=== PATIENT | male | born 1950 | race Caucasian/White ===

== ENCOUNTER 2021-01-22 12:54 | Day surgery (SDC) | payer MEDICARE, OTHER, SELFPAY ==
[2021-01-15 12:51] VITALS: BMI 30.8
[2021-01-16 14:18] VITALS: BMI 29.7
--- NOTE | 2021-01-21 09:53 | P.CONAN_ITS ---
HPI - Anesthesia Eval Consult details Narrative: 71yo M for Colonoscopy ICD in situ (interr on chart) Per Dr Brewer (cardiol) office, no visit since 05/2019, next scheduled for 05/2021. No echo on record. Device checks have all been WNL. Call to PCP for recent OV notes (unavailable d/t computers down) [facility] Past Medical History Medical History CAD (coronary artery disease) Elevated cholesterol HTN (hypertension) Hx of myocardial infarction Peripheral neuropathy Personal history of COVID-19 Surgical History Surgical History AICD (automatic cardioverter/defibrillator) present History of cardiac catheterization Hx of colonoscopy Social History Social History (Updated 01/16/21 @ 14:16 by Mara Gauthier RN) Patient Tobacco Use Status: Never used Tobacco Use of substances other than those prescribed or required for medical reasons: No Are you DNR?: No Advance Directives: No Advance Directives Information Provided: Yes (mailed) Advance Directives on File: No Meds Allergies Allergy/AdvReac Type Severity Reaction Status Date / Time No Known Allergies Allergy Verified 01/22/21 13:13 Home Medications Medication Instructions Recorded Confirmed Last Taken Type aspirin 81 mg tablet,delayed 81 mg PO DAILY 01/15/21 01/15/21 01/17/21 07:30 History release atorvastatin 80 mg tablet 80 mg PO DAILY 01/15/21 01/16/21 Unknown History losartan 50 mg tablet 50 mg PO DAILY 01/15/21 01/15/21 Unknown History metoprolol tartrate 25 mg tablet 25 mg PO DAILY 01/15/21 01/15/21 Unknown History multivitamin 1 tab PO DAILY 01/15/21 01/15/21 Unknown History Exam Exam Date and Time: January 21, 2021 0953 Height,Weight and Vital Signs: Height 5 ft 7 in Weight 86.183 kg Narrative Narrative: ICD Interr 12/18/20 (Full report on chart) [employer] Normal lead and device function. No events
[2021-01-22 13:33] VITALS: BP 129/80; PULSE 82; RESP 16; TEMP 36.7; O2SAT 96
[2021-01-22] MEDS: Lactated Ringers 1,000 ML 20 ML IVCONT (13:42)
--- NOTE | 2021-01-22 14:30 | MHC.SHP ---
Pre-Procedural Eval Section A Date of Service: 01/22/21 The patient is an INPATIENT: No Changes since office visit: No Cold of Flu in the past 2 weeks, No New Medical Problems, No Changes in Medication and No Patient answered all questions The History & Physical has been completed within 30 days and I have reviewed it.: Yes Section B Chief Complaint: screening Allergies: Allergies Allergy/AdvReac Type Severity Reaction Status Date / Time No Known Allergies Allergy Verified 01/22/21 13:13 Plan I have reviewed the history and physical and performed a pertinent physical examination on my patient. No changes have occurred unless specified.
[2021-01-22 15:07] VITALS: BP 104/58; PULSE 71; RESP 12; TEMP 36.2; O2SAT 93
--- NOTE | 2021-01-22 15:09 | PM.OP ---
Brief Operative Note Date of Service: 01/22/21 Pre-op diagnosis: screening Post-op diagnosis: same (colon polyps) Surgeon: David Stewart Anesthesia: MAC Was an Special Programs Director used for this Procedure?: No Estimated blood loss (mL): 1 Pathology: other (polyps x2) Condition: stable Disposition: PACU
[2021-01-22 15:23] VITALS: BP 129/73; PULSE 65; RESP 16; TEMP 36.2; O2SAT 96
--- NOTE | 2021-01-22 22:19 | OP_ITS ---
SURGEON: David Stewart MD INDICATIONS: Colon cancer screening. PREOPERATIVE DIAGNOSIS: POSTOPERATIVE DIAGNOSIS: PROCEDURE PERFORMED: Colonoscopy to the terminal ileum with snare polypectomy and biopsy. ESTIMATED BLOOD LOSS: COMPLICATIONS: ANESTHESIA: ASSISTANTS: SPECIMENS: MEDICATIONS: Monitored anesthesia care. DESCRIPTION OF PROCEDURE: History and physical performed. The risks and benefits of the procedure were explained to the patient. Informed consent was obtained. The patient was placed in the left lateral decubitus position. A digital rectal exam was performed and was found to be normal. The Olympus pediatric video colonoscope was introduced into the rectum and advanced to the cecum without difficulty. The cecum was identified by transillumination, palpation, and identification of ileocecal valve. Examination was performed and the scope was removed. He tolerated the procedure well and was taken to recovery area in stable condition. FINDINGS: The terminal ileum was normal. The visualized colonic mucosa was normal. In the cecum, was a 7 mm polyp that was removed with a cold snare and recovered via suction. A second polyp at 70 cm measuring less than 5 mm was removed with biopsy forceps. There was moderate sigmoid diverticulosis. The quality of the prep was good. Retroflexed examination showed moderate-sized internal hemorrhoids. IMPRESSION: Colon polyps. RECOMMENDATION: Follow up the biopsy results. MD ALYCIA Serrano/RENOL / [id number]
== END 2021-01-22 16:25 | disposition home or self-care (01) ==
PROVIDERS: PCP Internal Medicine; Visit Provider Internal Medicine Gastroenterology
PROC: 0DJD8ZZ Inspection of Lower Intestinal Tract, Via Natural or Artificial Opening Endoscopic (ICD-10-PCS; CPT 45378; principal; 2021-01-22 14:20)
DX: Z12.11 Encounter for screening for malignant neoplasm of colon (principal); D12.0 Benign neoplasm of cecum; D12.6 Benign neoplasm of colon, unspecified; Z86.010 Personal history of colon polyps; I10 Essential (primary) hypertension; Z79.82 Long term (current) use of aspirin; Z79.899 Other long term (current) drug therapy
CPT/HCPCS: 45385; 45380; 88305

== ENCOUNTER 2022-05-15 10:41 | Outpatient (REF) | payer MEDICARE, OTHER, SELFPAY ==
[2022-05-15 10:45] LABS: MANUAL DIFF FLAG NO
[2022-05-15 11:12] LABS: Basophils Percent Auto 0.6 % (0-2); Eosinophils Absolute Auto 0.5 X10*3/uL (0.0-0.4); Eosinophils Percent Auto 8.1 % (0-4); Hemoglobin 15.2 g/dl (14.0-18.0); Imm Gran Abs Auto 0.01 X10*3/uL (0.00-0.03); Imm Gran Pct Auto 0.2 % (0.0-0.4); Lymphocytes Absolute Auto 2.1 X10*3/uL (1.2-4.9); Lymphocytes Percent Auto 32.4 % (20-40); Mean Corpuscular Hemoglobin 30.4 pg (27.0-33.0); Mean Platelet Volume 11.4 fL (9.4-12.4); Monocytes Absolute Auto 0.5 X10*3/uL (0.1-1.2); Monocytes Percent Auto 8.1 % (2-11); Neutrophils Absolute Auto 3.3 x10*3/uL (2.0-8.3); Neutrophils Percent Auto 50.6 % (45-73); Platelet Count 253 X10*3/uL (160-400); Red Cell Distribution Width 13.2 % (11.0-16.0); White Blood Count 6.6 X10*3/uL (4.8-10.8)
[2022-05-15 11:14] LABS: Appearance Urine Clear; Color Urine Yellow; Glucose Urine UA Negative (Negative); Leukocyte Esterase Urine Negative (Negative); Nitrite Urine Negative (Negative); PH 5.5 (5.0-9.0); UMIC TRIGGER UACC YES; Urine Blood Trace (Negative); Urine Ketones Trace mg/dL (Negative); Urine Protein Negative (Neg-Trace)
[2022-05-15 11:17] LABS: Bacteria Urine None Seen (None Seen); Hyaline Casts Urine 0-2 /LPF (0-2); RBC Urine 0-2 /HPF (0-2); Squamous Epithelial Cell Urine 0-2 /HPF (0-2); WBC Urine 0-5 /HPF (0-5)
[2022-05-15 11:32] LABS: Estimated Average Glucose 134 mg/dL; Hemoglobin A1c % 6.3 %
[2022-05-15 11:53] LABS: Creatinine Urine 204.52 mg/dL; Microalbum/Creatinine Ratio Ur 5.3 ug/mg cr
[2022-05-15 12:04] LABS: Alanine Aminotransferase 32 U/L (0-40); Albumin Level 4.5 g/dL (3.5-5.0); Alkaline Phosphatase 50 U/L (39-117); Anion Gap 19 (12-20); Aspartate Amino Transferase 30 U/L (5-37); Bilirubin Total 0.8 mg/dL (0.0-1.0); Blood Urea Nitrogen 19 mg/dL (9-16); Calcium 9.6 mg/dL (8.4-10.2); Carbon Dioxide 22 mmol/L (22-29); Chloride 104 mmol/L (96-108); Cholesterol 133 mg/dL; Estimated Glomerular Filt Rate > 60; Glucose Fasting 93 mg/dL (60-99); HDL Cholesterol 47 mg/dL; LDL Cholesterol Calculated 70 mg/dl; Potassium 4.6 mmol/L (3.3-5.1); Sodium 140 mmol/L (135-145); Triglycerides 84 mg/dL
[2022-05-15 12:13] LABS: PSA,Total (Free>4and<10) 1.55 ng/mL (0.00-4.00)
== END 2022-05-15 10:42 | disposition home or self-care (01) ==
LOC: HO.LNP 10:41
PROVIDERS: Visit Provider Internal Medicine
DX: Z12.5 Encounter for screening for malignant neoplasm of prostate (principal); E78.00 Pure hypercholesterolemia, unspecified; R73.03 Prediabetes; Z87.448 Personal history of other diseases of urinary system
CPT/HCPCS: 80053; 80061; 81001; 82043; 83036; 84153; 85025

== ENCOUNTER 2022-11-24 07:46 | Outpatient (REF) | payer MEDICARE, OTHER, SELFPAY ==
[2022-11-24 13:00] LABS: Adenovirus PCR Not Detected (Not Detect.); Bordetella parapertussis PCR Not Detected (Not Detect.); Bordetella pertussis PCR Not Detected (Not Detect.); Chlamydia pneumoniae PCR Not Detected (Not Detect.); Coronavirus 229E PCR Not Detected (Not Detect.); Coronavirus HKU1 PCR Not Detected (Not Detect.); Coronavirus NL63 PCR Not Detected (Not Detect.); Coronavirus OC43 PCR Not Detected (Not Detect.); Human metapneumovirus PCR Not Detected (Not Detect.); Influenza A PCR Not Detected (Not Detect.); Influenza B PCR Not Detected (Not Detect.); Mycoplasma pneumoniae PCR Not Detected (Not Detect.); Parainfluenza 1 PCR Not Detected (Not Detect.); Parainfluenza 2 PCR Not Detected (Not Detect.); Parainfluenza 3 PCR Detected (Not Detect.); Parainfluenza 4 PCR Not Detected (Not Detect.); RSV PCR Not Detected (Not Detect.); Rhino/Enterovirus PCR Not Detected (Not Detect.); SARS-CoV-2 PCR Not Detected (Not Detect.)
== END 2022-11-24 07:47 | disposition home or self-care (01) ==
LOC: HO.LAB 07:46
PROVIDERS: PCP Internal Medicine; Visit Provider Internal Medicine
DX: J01.00 Acute maxillary sinusitis, unspecified (principal); B34.8 Other viral infections of unspecified site
CPT/HCPCS: 87633

== ENCOUNTER 2023-05-17 11:31 | Outpatient (REF) | payer MEDICARE, OTHER, SELFPAY ==
[2023-05-17 11:35] LABS: MANUAL DIFF FLAG NO
[2023-05-17 11:52] LABS: Basophils Percent Auto 0.5 % (0-2); Eosinophils Absolute Auto 0.6 X10*3/uL (0.0-0.4); Eosinophils Percent Auto 8.1 % (0-4); Hematocrit 46.7 % (42.0-52.0); Hemoglobin 15.6 g/dl (14.0-18.0); Imm Gran Abs Auto 0.02 X10*3/uL (0.00-0.03); Imm Gran Pct Auto 0.3 % (0.0-0.4); Lymphocytes Absolute Auto 1.7 X10*3/uL (1.2-4.9); Mean Corpuscular HGB Conc 33.4 g/dl (31.0-36.0); Mean Corpuscular Hemoglobin 30.2 pg (27.0-33.0); Mean Corpuscular Volume 90.5 fL (80.0-98.0); Mean Platelet Volume 12.1 fL (9.4-12.4); Monocytes Absolute Auto 0.6 X10*3/uL (0.1-1.2); Monocytes Percent Auto 7.3 % (2-11); Neutrophils Absolute Auto 4.9 x10*3/uL (2.0-8.3); Neutrophils Percent Auto 62.8 % (45-73); Platelet Count 256 X10*3/uL (160-400); Red Blood Count 5.16 X10*6/uL (4.60-5.80); Red Cell Distribution Width 13.2 % (11.0-16.0); White Blood Count 7.9 X10*3/uL (4.8-10.8)
[2023-05-17 11:54] LABS: Appearance Urine Clear; Color Urine Yellow; Glucose Urine UA Negative (Negative); Leukocyte Esterase Urine Negative (Negative); Nitrite Urine Negative (Negative); PH 5.5 (5.0-9.0); Specific Gravity - Urine 1.015 (1.005-1.025); Urine Blood Negative (Negative); Urine Ketones Trace mg/dL (Negative); Urine Protein Negative (Neg-Trace)
[2023-05-17 12:01] LABS: Estimated Average Glucose 134 mg/dL; Hemoglobin A1c % 6.3 % (<6.0)
[2023-05-17 12:09] LABS: Bacteria Urine None Seen (None Seen); Hyaline Casts Urine 0-2 /LPF (0-2); RBC Urine 0-2 /HPF (0-2); Squamous Epithelial Cell Urine 0-2 /HPF (0-2); WBC Urine 0-5 /HPF (0-5)
[2023-05-17 12:13] LABS: Alanine Aminotransferase 29 U/L (0-40); Albumin Level 4.4 g/dL (3.5-5.0); Alkaline Phosphatase 51 U/L (39-117); Anion Gap 14 (12-20); Aspartate Amino Transferase 29 U/L (5-37); Bilirubin Total 0.6 mg/dL (0.0-1.0); Blood Urea Nitrogen 15 mg/dL (9-16); Calcium 9.9 mg/dL (8.4-10.2); Carbon Dioxide 25 mmol/L (22-29); Chloride 104 mmol/L (96-108); Cholesterol 152 mg/dL (<200); Estimated Glomerular Filt Rate > 60; Glucose Fasting 120 mg/dL (60-99); HDL Cholesterol 49 mg/dL (>40); LDL Cholesterol Calculated 82 mg/dL (<100); Potassium 4.9 mmol/L (3.3-5.1); Sodium 138 mmol/L (135-145); Total Protein 7.6 g/dL (6.5-8.0); Triglycerides 108 mg/dL (<150)
[2023-05-17 12:23] LABS: PSA,Total (Free>4and<10) 1.87 ng/mL (0.00-4.00)
[2023-05-17 12:40] LABS: Creatinine Urine 158.51 mg/dL; Microalbum/Creatinine Ratio Ur 11.3 ug/mg cr (<30)
== END 2023-05-17 11:32 | disposition home or self-care (01) ==
LOC: HO.LNP 11:31
PROVIDERS: Visit Provider Internal Medicine
DX: R73.09 Other abnormal glucose (principal); E78.00 Pure hypercholesterolemia, unspecified; Z12.5 Encounter for screening for malignant neoplasm of prostate
CPT/HCPCS: 80053; 80061; 81001; 82043; 82570; 83036; 84153; 85025

== ENCOUNTER 2023-11-12 11:06 | Outpatient (REF) | payer MEDICARE, OTHER, SELFPAY ==
[2023-11-12 12:08] LABS: Alanine Aminotransferase 33 U/L (0-40); Albumin Level 4.4 g/dL (3.5-5.0); Alkaline Phosphatase 59 U/L (39-117); Aspartate Amino Transferase 32 U/L (5-37); Bilirubin Direct 0.1 mg/dL (0.0-0.5); Bilirubin Total 0.4 mg/dL (0.0-1.0); Cholesterol 140 mg/dL (<200); Glucose Fasting 140 mg/dL (60-99); HDL Cholesterol 48 mg/dL (>40); LDL Cholesterol Calculated 70 mg/dL (<100); Triglycerides 112 mg/dL (<150)
[2023-11-12 12:44] LABS: Estimated Average Glucose 146 mg/dL; Hemoglobin A1c % 6.7 % (<6.0)
[2023-11-12 13:17] LABS: Reflex LDLD? No
== END 2023-11-12 11:07 | disposition home or self-care (01) ==
LOC: HO.LNP 11:06
PROVIDERS: Visit Provider Internal Medicine
DX: E78.00 Pure hypercholesterolemia, unspecified (principal); R73.09 Other abnormal glucose
CPT/HCPCS: 80061; 80076; 82947; 83036

== ENCOUNTER 2024-03-03 08:26 | Outpatient (REF) | payer MEDICARE, OTHER, SELFPAY ==
[2024-03-03 09:06] LABS: Estimated Average Glucose 111 mg/dL; Hemoglobin A1C 127.0582 umol/L; Hemoglobin A1c % 5.5 % (<6.0); Total Hemoglobin (HGBA1C) 3520.6751 umol/L
[2024-03-03 09:10] LABS: Glucose Fasting 108 mg/dL (60-99)
== END 2024-03-03 08:27 | disposition home or self-care (01) ==
LOC: HO.LAB 08:26
PROVIDERS: PCP Internal Medicine; Visit Provider Internal Medicine
DX: R73.09 Other abnormal glucose (principal)
CPT/HCPCS: 36415; 82947; 83036

== ENCOUNTER 2024-06-09 11:34 | Outpatient (REF) | payer MEDICARE, OTHER, SELFPAY ==
[2024-06-09 11:38] LABS: MANUAL DIFF FLAG NO
[2024-06-09 11:48] LABS: Basophils Percent Auto 0.7 % (0-2); Eosinophils Absolute Auto 0.5 X10*3/uL (0.0-0.4); Eosinophils Percent Auto 8.7 % (0-4); Hematocrit 43.8 % (42.0-52.0); Hemoglobin 14.6 g/dl (14.0-18.0); Imm Gran Abs Auto 0.01 X10*3/uL (0.00-0.03); Imm Gran Pct Auto 0.2 % (0.0-0.4); Lymphocytes Absolute Auto 1.6 X10*3/uL (1.2-4.9); Lymphocytes Percent Auto 30.4 % (20-40); Mean Corpuscular HGB Conc 33.3 g/dl (31.0-36.0); Mean Corpuscular Hemoglobin 31.6 pg (27.0-33.0); Mean Corpuscular Volume 94.8 fL (80.0-98.0); Mean Platelet Volume 11.2 fL (9.4-12.4); Monocytes Absolute Auto 0.5 X10*3/uL (0.1-1.2); Monocytes Percent Auto 8.3 % (2-11); Neutrophils Absolute Auto 2.8 x10*3/uL (2.0-8.3); Neutrophils Percent Auto 51.7 % (45-73); Platelet Count 249 X10*3/uL (160-400); Red Blood Count 4.62 X10*6/uL (4.60-5.80); Red Cell Distribution Width 13.2 % (11.0-16.0); White Blood Count 5.4 X10*3/uL (4.8-10.8)
[2024-06-09 11:56] LABS: Estimated Average Glucose 108 mg/dL; Hemoglobin A1C 137.7843 umol/L; Hemoglobin A1c % 5.4 % (<6.0); Total Hemoglobin (HGBA1C) 3836.1935 umol/L
[2024-06-09 12:01] LABS: Alanine Aminotransferase 30 U/L (0-40); Albumin Level 4.5 g/dL (3.5-5.0); Alkaline Phosphatase 40 U/L (39-117); Anion Gap 11 (12-20); Aspartate Amino Transferase 29 U/L (5-37); Bilirubin Total 0.5 mg/dL (0.0-1.0); Blood Urea Nitrogen 21 mg/dL (9-16); Calcium 9.7 mg/dL (8.4-10.2); Carbon Dioxide 26 mmol/L (22-29); Chloride 107 mmol/L (96-108); Cholesterol 153 mg/dL (<200); Estimated Glomerular Filt Rate > 60; Glucose Fasting 94 mg/dL (60-99); HDL Cholesterol 63 mg/dL (>40); LDL Cholesterol Calculated 79 mg/dL (<100); Potassium 4.5 mmol/L (3.3-5.1); Sodium 139 mmol/L (135-145); Total Protein 7.6 g/dL (6.5-8.0); Triglycerides 59 mg/dL (<150)
[2024-06-09 12:19] LABS: PSA,Total (Free>4and<10) 1.76 ng/mL (0.00-4.00)
[2024-06-09 12:25] LABS: Appearance Urine Clear; Color Urine Yellow; Glucose Urine UA Negative (Negative); Leukocyte Esterase Urine Negative (Negative); Nitrite Urine Negative (Negative); PH 5.5 (5.0-9.0); Urine Blood Negative (Negative); Urine Ketones Negative (Negative); Urine Protein Negative (Neg-Trace)
[2024-06-09 12:26] LABS: Bacteria Urine None Seen (None Seen); Hyaline Casts Urine 0-2 /LPF (0-2); RBC Urine 0-2 /HPF (0-2); Squamous Epithelial Cell Urine 0-2 /HPF (0-2); WBC Urine 0-5 /HPF (0-5)
[2024-06-09 12:34] LABS: Creatinine Urine 106.21 mg/dL; Microalbum/Creatinine Ratio Ur 7.5 ug/mg cr (<30)
--- OUTSIDE RECORDS SUMMARY | 2024-06-09 13:54 | XMS_ITS ---
Author Organization Yuriy Bueno MD Address [address] [place] [phone] Care Team Providers Care Routing Equipment Tender Name Role Phone Yuriy Bueno Primary Care Provider Medications Medication SIG (Take, Route, Frequency, Duration) Notes Start Date End Date Status Hydrocod Raman-Chlorphe Raman ER 10-8 MG/5ML 5 ml as needed Orally every 12 hrs for 10 days 01/04/2024 Active Encounters Encounter Location Date Provider Diagnosis Yuriy Bueno MD [address] [place] [phone] 01/04/2024 Yuriy Bueno COVID-19 U07.1 Assessments Encounter Date Diagnosis (ICD Code) Assessment Notes Treatment Notes Treatment Clinical Notes Section Notes 01/04/2024 COVID-19 (ICD-10 - U07.1) Plan Of Treatment Medication Medication Name Sig Start Date Stop Date Notes Hydrocod Raman-Chlorphe Raman ER 10-8 MG/5ML 5 ml as needed Orally every 12 hrs for 10 days 01/04/2024 Next Appt Details Provider Name:Yuriy brush, 06/23/2024 08:00:00 AM, [address], [address], [place], [place], [phone], Progress Notes * Iglesia HAIR JDOB:[birth year] (73 yo M)Acc No.[id number]:01/04/2024 Patient:?Iglesia Hair :1950???Age:73 Y???Sex:Male Address:[facility] [address], [address] [place] [address] , [place] [address] * Refills? Continue Hydrocod Raman-Chlorphe Raman ER Suspension Extended Release, 10-8 MG/5ML, Orally, 100 ml, 5 ml as needed, every 12 hrs, 10 days, Refills=0 * true * Date:? Generated for Pepe hernandez/Eve/Madiitting on:?06/09/2024 01:54 PM EST
--- OUTSIDE RECORDS SUMMARY | 2024-06-09 13:54 | XMS_ITS | Clinical Summary ---
Author Organization [facility] Address [address] [place] [address] Care Team Providers Care Golf Cart Maker Name Role Phone Pcp, No Primary Care Provider Unavailabl e Allergies No known active allergies Medications Medication Sig Dispensed Refills Start Date End Date Status atorvastatin (LIPITOR) 80 MG tablet Take 80 mg by mouth daily. 09/30/2022 Active losartan (COZAAR) 50 MG tablet Take 50 mg by mouth daily. 11/05/2022 Active propranolol (INDERAL LA) 80 MG 24 hr capsule Take by mouth daily. 10/22/2022 Active aspirin 81 MG chewable tablet Chew 81 mg daily. Active Social History Tobacco Use Types Packs/Day Years Used Date Smoking Tobacco: Never Assessed Sex and Gender Information Value Date Recorded Sex Assigned at Not on file Gender Identity Not on file Sexual Orientation Not on file Last Filed Vital Signs Vital Sign Reading Time Taken Comments Blood Pressure 128/79 11/18/2022 10:46 AM EDT Pulse 51 11/18/2022 10:46 AM EDT Temperature 36.8 ??C (98.3 ??F) 11/18/2022 10:46 AM E DT Respiratory Rate - - Oxygen Saturation 96% 11/18/2022 10:46 AM EDT Inhaled Oxygen Concentration - - Weight - - Height - - Body Mass Index - - Plan of Treatment Health Maintenance Due Date Last Done Comments Hepatitis C Virus Screening 1950 DTaP/Tdap/Td Vaccines (1 - Tdap) 1970 Mammogram 1991 Colonoscopy 01/15/1996 Pneumococcal Vaccines 50+ (1 of 1 - PCV) 2001 Zoster (Shingles) Vaccine (1 of 2) 2001 DXA Bone Density (Females,Ag es 65 and older) 01/15/2016 Influenza Vaccine 11/11/2023 COVID-19 Vaccine ( - 2023-2 5 season) 2023 RSV Vaccine 60 years and old er and Patients (1 - 1-dose 75+ series) 2026 Hepatitis B Vaccines Aged Out No long er eligible based on patient's age to complete this topic Care Teams Golf Cart Maker Relationship Specialty Start Date End Date Pcp, No [address] [place] [address] PCP - General 11/18/22
--- OUTSIDE RECORDS SUMMARY | 2024-06-09 13:54 | XMS_ITS ---
Author Organization Yuriy Bueno MD Address [address] [place] [phone] Care Team Providers Care Assembly Riveter Name Role Phone Yuriy Bueno Primary Care Provider Results Component Value Reference Range Notes Comprehensive [facility]. Panel Fa st (Not yet reviewed by provider) Interpretation: Performing Lab:[facility], [address] [place] [phone] Notes/Report: Sodium 139 135-145 mmol/L Potassium 4.5 3.3-5.1 mmol/L Chloride 107 96-108 mmol/L Carbon Dioxide 26 22-29 mmol/L Anion Gap 11 12-20 Blood Urea Nitrogen 21 9-16 mg/dL Creatinine 0.93 0.5-1.4 mg/dL Estimated Glomerular Filt Rate > 60 Chronic Kidney Disease: Estimated GFR < 60 mL/min/1.73m2 Severe Kidney Disease: Estimated GFR < 15 mL/min/1.73m2 Glucose Fasting 94 60-99 mg/dL Calcium 9.7 8.4-10.2 mg/dL Bilirubin Total 0.5 0.0-1.0 mg/dL Aspartate Amino Transferase 29 5-37 U/L Alanine Aminotransferase 30 0-40 U/L Total Protein 7.6 6.5-8.0 g/dL Albumin Level 4.5 3.5-5.0 g/dL Alkaline Phosphatase 40 39-117 U/L Complete Blood Count Auto Di ff Reviewed date:06/09/2024 12:41:07 PM Interpretation: Performing Lab:[facility], [address] [place] [phone] Notes/Report: White Blood Count 5.4 4.8-10.8 X10*3/uL Red Blood Count 4.62 4.60-5.80 X10*6/uL Hemoglobin 14.6 14.0-18.0 g/dl Hematocrit 43.8 42.0-52.0 % Mean Corpuscular Volume 94.8 80.0-98.0 fL Mean Corpuscular Hemoglobin 31.6 27.0-33.0 pg Mean Corpuscular HGB Conc 33.3 31.0-36.0 g/dl Red Cell Distribution Width 13.2 11.0-16.0 % Platelet Count 249 160-400 X10*3/uL Mean Platelet Volume 11.2 9.4-12.4 fL Neutrophils Percent Auto 51.7 45-73 % Imm Gran Pct Auto 0.2 0.0-0.4 % Lymphocytes Percent Auto 30.4 20-40 % Monocytes Percent Auto 8.3 2-11 % Eosinophils Percent Auto 8.7 0-4 % Basophils Percent Auto 0.7 0-2 % NRBC Pct Auto 0.0 0.0-0.2 /100WBC Neutrophils Absolute Auto 2.8 2.0-8.3 x10*3/u L Imm Gran Abs Auto 0.01 0.00-0.03 X10*3/uL Lymphocytes Absolute Auto 1.6 1.2-4.9 X10*3/u L Monocytes Absolute Auto 0.5 0.1-1.2 X10*3/uL Eosinophils Absolute Auto 0.5 0.0-0.4 X10*3/u L Basophils Absolute Auto 0.0 0.0-0.2 X10*3/uL NRBC Abs Auto 0.000 0.0-0.012 X10*3/uL Lipid Panel Reviewed date:06/09/2024 12:40:42 PM Interpretation: Performing Lab:[facility], [address] [place] [phone] Notes/Report: Triglycerides 59 <150 mg/dL Desirable Triglyceride: less than 150 mg/dL Borderline High Triglyceride 150-199 mg/dL High Triglyceride: 200-499 mg/dL Very High Triglyceride: greater than or equal to 5OO mg/dL Cholesterol 153 <200 mg/dL Desirable Cholesterol: less than 200 mg/dL Borderline High Cholesterol: 200-239 mg/dL High Cholesterol: greater than 239 mg/dL LDL Cholesterol Calculated 79 <100 mg/dL Desirable LDL: less than 100 mg/dL Near Optimal/Above Optimal LDL: 110-129 mg/dL Borderline High LDL: 130-159 mg/dL High LDL: 160-189 mg/dL Very High LDL: greater than or equal to 190 mg/dL HDL Cholesterol 63 >40 mg/dL Desirable HDL: greater than 40 mg/dL Note: This HDL assay may give artificially low results in patients with liver disease. PSA,Total (Free>4and<10) Reviewed date:06/09/2024 12:40:18 PM Interpretation: Performing Lab:[address] [phone] Notes/Report: PSA,Total (Free>4and<10) 1.76 0.00-4.00 ng/mL A Free PSA was not performed: The percentage of Free PSA can be used to enhance the differentiation of prostate cancer from benign prostatic disease in subjects whose PSA levels are between 4.0 and 10.0 ng/mL. For subjects whose PSA levels are below 4.0 or above 10.0 ng/mL, the risk of prostate cancer is determined on the basis of the PSA alone. Therefore the % Free PSA is recommended only for those subjects whose PSA levels are between 4.0 and 10.0 ng/mL. PSA methodology: Handy Alinity i Chemiluminescent Microparticle Immunoassay (CMIA) Microalbumin, Random Reviewed date:06/09/2024 12:40:29 PM Interpretation: Performing Lab:[facility], [address] [place] [phone] Notes/Report: Creatinine Urine 106.21 Microalbumin Urine 8.0 Microalbum/Creatinine Ratio Ur 7.5 <30 ug/mg cr Albumin/Creatinine Ratio Reference Ranges: Normal: < 30 ug/mg creatinine Microalbuminuria: 30 - 300 ug/mg creatinine Clinical Albuminuria: > 300 ug/mg creatinine Hemoglobin A1c Reviewed date:06/09/2024 12:40:36 PM Interpretation: Performing Lab:[facility], [address] [place] [phone] Notes/Report: Hemoglobin A1c % 5.4 <6.0 % Hemoglobin A1C Reference Range Adults: 4.8 - 6.0 % Non diabetic: < 6.0 % Goal: < 7.0 % Additional Action Suggested: > 8.0 % Note: Hemoglobin A1c results are invalid for patients with abnormal amounts of HbF. Blood transfusions may impact the HbA1c concentration in the patient sample. Estimated Average Glucose 108 eAG = Estimated average glucose which is %A1C expressed as average glucose, using the formula of the G6D-Jewkhjz Average Glucose study (ADAG), Diabetes Care, Vol.31,#8, Nov. 2007 UA ClnCatch+Micro w/rflx Cul t Reviewed date:06/09/2024 12:41:26 PM Interpretation: Performing Lab:[facility], [address] [place] [phone] Notes/Report: Urine, Clean Catch Color Urine Yellow Appearance Urine Clear PH 5.5 5.0-9.0 Glucose Urine UA Negative Negative mg/dL Urine Blood Negative Negative Specific [place] - Urine 1.020 1.005-1.025 Urine Protein Negative Neg-Trace mg/dL Urine Ketones Negative Negative mg/dL Nitrite Urine Negative Negative Leukocyte Esterase Urine Negative Negative RBC Urine 0-2 0-2 /HPF WBC Urine 0-5 0-5 /HPF Squamous Epithelial Cell Urine 0-2 0-2 /HPF Bacteria Urine None Seen None Seen Hyaline Casts Urine 0-2 0-2 /LPF REASON FOR VISIT FASTING LABS Encounters Encounter Location Date Provider Diagnosis Yuriy Bueno MD [address] [place] [address] Drive [address] [place], [place] [phone] 06/09/2024 Yuriy Bueno Type 2 diabetes pranav itus treated without insulin E11.9 and Pure hypercholesterolemia E78.00 Assessments Encounter Date Diagnosis (ICD Code) Assessment Notes Treatment Notes Treatment Clinical Notes Section Notes 06/09/2024 Type 2 diabetes pranav itus treated without insulin (ICD-10 - E11.9) 06/09/2024 Pure hypercholesterolemia (ICD-10 - E78.00) Plan Of Treatment Pending Test Test Name Order Date Comprehensive [facility]. Panel Fast Next Appt Details Provider Name:Yuriy Kaity Adame ier, 06/23/2024 08:00:00 AM, [address], [address], [place], [phone], Progress Notes * Iglesia HAIR JDOB:[birth year] (74 yo M)Acc No.[id number]:06/09/2024 Progress Note Patient:?Iglesia HAIR Provider:?Yuriy Bueno MD :1950???Age:74 Y???Sex:Male Rob e:06/09/2024 Address:[facility] [address], [address] [facility] , [place], [place] Subjective: * Chief Complaints: * ???1. FASTING LABS. * Medical History:? Objective: * Vitals:? Assessment: * Assessment: 1.?Type 2 diabetes mellitus treated without insulin - E11.9???2.?Pure hypercholesterolemia - E78.00??? Plan: * Treatment: 2.?Pure hypercholesterolemia ?LAB: Comprehensive [facility]. Panel Fast (Collection Date & Time - 06/09/2024 07:45 AM) ?LAB: Complete Blood Count Auto Diff (Collection Date & Time - 06/09/2024 07:45 AM) ?LAB: Lipid Panel (Collection Date & Time - 06/09/2024 07:45 AM) ?LAB: PSA,Total (Free>4and<10) (Collection Date & Time - 06/09/2024 07:45 AM) ?LAB: Microalbumin, Random (Collection Date & Time - 06/09/2024 07:45 AM) ?LAB: Hemoglobin A1c (Collection Date & Time - 06/09/2024 07:45 AM) ?LAB: UA ClnCatch+Micro w/rflx Cult (Collection Date & Time - 06/09/2024 07:45 AM) * Procedure Codes:?30190 VENIP UNCT, ROUTINE* * * The named appointment provid er may or may not be the originator of this progress note, and it is not deemed complete until electronically signed by the appointment provider. Sign off status: Pending * Provider:?Yuriy Bueno MD Date:?0 06/09/2024 Generated for Pepe hernandez/Eve/Davy on:?06/09/2024 01:54 PM EST
--- OUTSIDE RECORDS SUMMARY | 2024-06-09 13:54 | XMS_ITS | Clinical Summary ---
[facility] Organization [facility] Address [address] [place] [address] Care Team Providers Care Care Transition Mgr Name Role Phone Unavailable Primary Care Provider Unavailabl e Medications Medication Sig Dispensed Refills Start Date End Date Status atorvastatin (LIPITOR) tablet 80 mg Take 80 mg by mouth daily. 0 10/24/2019 Active losartan (COZAAR) tablet 50 mg TAKE 1 TABLET BY MOUTH EVERY DAY TO REPLACE IRBESARTAN WHILE IT IS NOT AVAILABLE 0 12/03/2019 Active metoprolol succinate (TOPROL-XL) 24 hr tablet 25 mg 0 12/19/2019 Active Social History Tobacco Use Types Packs/Day Years Used Date Smoking Tobacco: Never Assessed Sex and Gender Information Value Date Recorded Sex Assigned at Not on file Gender Identity Not on file Sexual Orientation Not on file Last Filed Vital Signs Vital Sign Reading Time Taken Comments Blood Pressure - - Pulse - - Temperature - - Respiratory Rate - - Oxygen Saturation - - Inhaled Oxygen Concentration - - Weight 86.2 kg (190 lb) 12/29/2019 11:00 AM EDT Height 170.2 cm (5' 7 ) 12/29/2019 11:00 AM EDT Body Mass Index 29.76 12/29/2019 11:00 AM EDT Plan of Treatment Health Maintenance Due Date Last Done Comments Hepatitis C Screening 1950 COVID-19 Vaccine (#1) 1950 Depression Screening 1963 Preventative Health Evaluation 1969 DTap / Tdap / Td (1 - Tdap) 1970 Colon Cancer Screening (Colonoscopy) 01/15/1996 Shingrix-Zoster Vaccine (1 of 2) 2001 Fall Risk Assessment 01/15/2016 Pneumococcal Vaccine (1 of 1 - PCV) 01/15/2016 Influenza Vaccine (#1) 2023 RSV Adult > 60+ Yrs or Pregn ant (1 - 1-dose 75+ series) 2026 Hepatitis B Vaccines Aged Out No long er eligible based on patient's age to complete this topic RSV Ped < 20 months Aged Out No longe r eligible based on patient's age to complete this topic
--- OUTSIDE RECORDS SUMMARY | 2024-06-09 13:54 | XMS_ITS ---
Author Name [facility] Organization Unknown History of Medication Use Medication Directions Dispensed Refills Start Date End Date Stat us aspirin 81 MG chewable tablet Chew 81 mg daily. ac tive losartan (COZAAR) 50 MG tablet Take 50 mg by mouth daily. 11/05/2022 active Problems Problem Status Onset Date Problem Type Date of Resoluti on Source Viral URI with cough [facility] Encounter for screening laboratory testing for COVID-19 virus active [facility]
--- OUTSIDE RECORDS SUMMARY | 2024-06-09 13:55 | XMS_ITS | Patient Health Record ---
Author Organization [facility] Address [address] [place] [address] Care Team Providers Care After School Tutor Name Role Phone Yuriy Bueno MD Primary Care Provider David Lujan Jr Unavailable [phone] REASON FOR REFERRAL No Information MEDICATIONS Medication SIG (Take, Route, Frequency, Duration) Notes Start Date End Date Status Multivitamin - 1 tablet Orally Once a day for 30 day(s) Active MiraLax (colon prep) 17 GM/SCOOP mixed with Gatorade or Crystal Light Orally begin at 5:00 p.m. the day before the procedure for 1 day 01/09/2021 Active Losartan Potassium 50 MG Oral for 90 Active Aspir-81 81 MG 1 tablet Orally Once a day Active Metoprolol Tartrate 25 MG 1 tablet Orall y once a day Active Atorvastatin Calcium 80 MG 1 tablet Oral ly Once a day Active IMMUNIZATIONS Vaccine Route Administration Date Status Comme nts Influenza Unknown 12/12/2019 Administered SOCIAL HISTORY Sex Assigned At : Social History Observation Description Sex Assigned At Unknown PROBLEMS Problem Type ICD Code Onset Dates Problem Status W/U Status Risk SNOMED Code Notes Problem Colon cancer screening (Z12.11) Active confirmed 284647669 Problem Personal history of colonic polyps (Z86.010) Active confirmed 476539043 Problem Encounter for other preprocedural examination (Z01.818) Active confirmed 45571610 Problem exterminator helper (current) use of aspirin (Z79.82) Active confirmed [id number] PLAN OF TREATMENT Future Test Test Name Order Date COLONOSCOPY 06/26/2015 COLONOSCOPY 01/09/2021 Insurance Providers Payer Name Payer Address Payer Phone Subscriber Number Group Number Insured Name Patient Relationship to Insured Coverage Start Date Coverage End Date MEDICARE OF [place] [address] [place] [address] [id number] CAREY LOVE Self - patient is the insured [place] [address] [place] [phone] [id number] CAREY LOVE Self - patient is the insured MEDICAL (GENERAL) HISTORY Medical History History ICD Code Colonoscopy 08/28/15, 5 mm tubular adenom a, five-year followup Coronary artery disease with history of OR 07/27/09 covid positive 12/22 Elevated blood sugar Hypertension Elevated cholesterol Surgical History Surgery Date(Month/Year) stent placement x2 at the time of cardia c catheterization defib implant 10/01/2015
--- OUTSIDE RECORDS SUMMARY | 2024-06-09 13:55 | XMS_ITS ---
Author Organization Yuriy Bueno MD Address [address] [place] [phone] Care Team Providers Care Rivet Tosser Name Role Phone Yuriy Bueno Primary Care Provider Allergies No Known Allergies Results Component Value Reference Range Notes Glucose Fasting Reviewed date:03/03/2024 12:08:01 PM Interpretation: Performing Lab:[facility], [address] [place] [phone] Notes/Report: Glucose Fasting 108 60-99 mg/dL A fasting glucose from 100-125 mg/dl is considered impaired (pre-diabetes). Hemoglobin A1c Reviewed date:03/03/2024 12:07:42 PM Interpretation: Performing Lab:[facility], [address] [place] [phone] Notes/Report: Hemoglobin A1c % 5.5 <6.0 % Hemoglobin A1C Reference Range Adults: 4.8 - 6.0 % Non diabetic: < 6.0 % Goal: < 7.0 % Additional Action Suggested: > 8.0 % Note: Hemoglobin A1c results are invalid for patients with abnormal amounts of HbF. Blood transfusions may impact the HbA1c concentration in the patient sample. Estimated Average Glucose 111 eAG = Estimated average glucose which is %A1C expressed as average glucose, using the formula of the G5F-Ayfitxb Average Glucose study (ADAG), Diabetes Care, Vol.31,#8, Nov. 2007 REASON FOR VISIT 3 month/ flu shot Medications Medication SIG (Take, Route, Frequency, Duration) Notes Start Date End Date Status Flonase 50 MCG/ACT 1 spray in each nostril Nasally Once a day for 30 day(s) 07/23/2014 Not-Taking Paxlovid (300/100) 20 x 150 MG & 10 x 100MG 2 tabs nirm and 1 of nadeen Orally Twice a day for 5 days 11/17/2022 Not-Taking Irbesartan 150 MG 1 tablet Orally Once a day Not-Taking Zithromax Z-Frank 250 MG 2 tablet on the irst day, then 1 tablet daily for 4 days Orally 2 tabs day one then 1 per day for 5 days 11/12/2022 Not-Taking dexAMETHasone 4 MG 1 tablet Orally thre e times a day for 7 days 08/31/2023 Not-Takin g Propranolol HCl ER 80 MG 1 capsule Orall y Once a day for 90 days 05/21/2022 Active Atorvastatin Calcium 80 MG 1 tablet Oral ly Once a day Active Aspir-81 81 MG 1 tablet Orally Once a day for 30 day(s) Active Losartan Potassium 50 MG 1 tablet Orally Once a day Active Hydrocod Raman-Chlorphe Raman ER 10-8 MG/5ML 5 ml as needed Orally every 12 hrs for 10 days 01/04/2024 Active Immunizations Vaccine Route Administration Date Status Comme nts Influenza High Dose IM Intramuscular 03/03/2024 Administer ed Vital Signs Blood pressure systolic 110 mm Hg 03/03/20 24 Blood pressure diastolic 65 mm Hg 024 Height 66.5 in 03/03/2024 Weight 164 lbs 03/03/2024 BMI 26.07 kg/m2 03/03/2024 Encounters Encounter Location Date Provider Diagnosis Yuriy Bueno MD [address] [place] [address] Drive [address] [place] [phone] 03/03/2024 Yuriy Bueno Prediabetes R73.09 ; Coronary atherosclerosis due to lipid rich plaque I25.83 and Encounter for immunization Z23 Assessments Encounter Date Diagnosis (ICD Code) Assessment Notes Treatment Notes Treatment Clinical Notes Section Notes 03/03/2024 Prediabetes (ICD-10 - R73.09) 03/03/2024 Coronary atherosclerosis due to lipid rich plaque (ICD-10 - I25.83) will get cardiac ct. / order given to patient/ THE ORDER WAS FAXED TO [facility] AT [phone] 2. 03/03/2024 Encounter for immunization (ICD-10 - Z23) Plan Of Treatment Treatment Notes Assessment Notes Coronary atherosclerosis due to lipid rich plaque will get cardiac ct. / order given to patient/ THE ORDER WAS FAXED TO [facility] AT . Next Appt Details Provider Name:Yuriy Adame ier, 06/23/2024 08:00:00 AM, [address] [place] [address], [address], [place], [place], [phone], Progress Notes * Iglesia HAIRDOB:[birth year] (74 yo M)Acc No.[id number]:03/03/2024 Progress Notes Patient:?Iglesia Hair Provider:?Yuriy Bueno MD :1950???Age:74 Y???Sex:Male Rob e:03/03/2024 Address:[facility] [address], [address] [place] [address] , [facility] Subjective: * Chief Complaints: * ???3 month/ flu shot * HPI: ???Symptom(s):? patient is a 74 yo male here for 3 month follow up. has lost 40 pounds. has given up carbs and sweets./ has had no chest pains. had 2 stents 14 years ago. * ROS:?General/Constitutional:?Denies?Chills.?Denies?Fatigue.?Denies?Fever.?Denies?Headache.?ENT:?Patient denies?decreased sense of smell , any loss of taste , sore throat.?Denies?Sore throat.?Respiratory:?Denies?Cough.?Denies?Shortness of breath at rest.?Denies?Shortness of breath with exertion.?Gastrointestinal:?Denies?Diarrhea.?Denies?Nausea.?Musculoskeletal:?Patient denies?muscle aches.?Peripheral Vascular:?Patient denies?red and blue toes.? * Medical History:? * Surgical History:? * Hospitalization/Major Diagno stic Procedure:? * Medications:?TakingAspir-81 81 MG Tablet Delayed Release 1 tablet Orally Once a dayLosartan Potassium 50 MG Tablet 1 tablet Orally Once a dayPropranolol HCl ER 80 MG Capsule Extended Release 24 Hour 1 capsule Orally Once a dayAtorvastatin Calcium 80 MG Tablet 1 tablet Orally Once a dayHydrocod Raman-Chlorphe Raman ER 10-8 MG/5ML Suspension Extended Release 5 ml as needed Orally every 12 hrsTaking Aspir-81 81 MG Tablet Delayed Release 1 tablet Orally Once a dayTaking Losartan Potassium 50 MG Tablet 1 tablet Orally Once a dayTaking Propranolol HCl ER 80 MG Capsule Extended Release 24 Hour 1 capsule Orally Once a dayTaking Atorvastatin Calcium 80 MG Tablet 1 tablet Orally Once a dayTaking Hydrocod Raman-Chlorphe Raman ER 10-8 MG/5ML Suspension Extended Release 5 ml as needed Orally every 12 hrsNot-Taking/PRNdexAMETHasone 4 MG Tablet 1 tablet Orally three times a dayZithromax Z-Frank 250 MG Tablet 2 tablet on the first day, then 1 tablet daily for 4 days Orally 2 tabs day one then 1 per dayPaxlovid (300/100) 20 x 150 MG & 10 x 100MG Tablet Therapy Pack 2 tabs nirm and 1 of nadeen Orally Twice a dayIrbesartan 150 MG Tablet 1 tablet Orally Once a dayFlonase 50 MCG/ACT Suspension 1 spray in each nostril Nasally Once a dayMedication List reviewed and reconciled with the patientNot-Taking/PRN dexAMETHasone 4 MG Tablet 1 tablet Orally three times a dayNot-Taking/PRN Zithromax Z-Frank 250 MG Tablet 2 tablet on the first day, then 1 tablet daily for 4 days Orally 2 tabs day one then 1 per dayNot-Taking/PRN Paxlovid (300/100) 20 x 150 MG & 10 x 100MG Tablet Therapy Pack 2 tabs nirm and 1 of nadeen Orally Twice a dayNot-Taking/PRN Irbesartan 150 MG Tablet 1 tablet Orally Once a dayNot-Taking/PRN Flonase 50 MCG/ACT Suspension 1 spray in each nostril Nasally Once a dayMedication List reviewed and reconciled with the patient * Allergies:?N.K.D.A.yes[Aller gies Verified] Objective: * Vitals:?Ht: 66.5, Wt:164, BM I:26.07, BP:110/65. * Examination: ???General Examination: ?GENERAL APPEARANCE:?alert, well hydrated, in no distress.?SKIN:?good turgor.?HEART:?no murmurs, rubs, gallops , regular rate and rhythm.?LUNGS:?no wheezes, rales, rhonchi , good air movement , clear to auscultation bilaterally.? Assessment: * Assessment: 1.?Prediabetes - R73.09 (Juany christin)?2.?Coronary atherosclerosis due to lipid rich plaque - I25.83?3.?Encounter for immunization - Z23? Plan: * Treatment: 2.?Coronary atherosclerosis due to lipid rich plaque? Notes: will get cardiac ct. / order given to patient/ THE ORDER WAS FAXED TO [facility] AT .?? * Immunizations:? Influenza High Dose : 0.5 mL (Dose No:1) (Route: Intramuscular) given by [place] Craft on Left Deltoid * Procedure Codes:?28730 FLU V ACC PRSV FREE INC [id number] ADMN FLU VAC NO FEE SCHED SAME DAY * * Sign off status: Completed true * Provider:?Yuriy Bueno MD Date:?1 05/03/2023 Generated for Pepe hernandez/Eve/eTransmitting on:?06/09/2024 01:54 PM EST History and Physical Notes * HPI (History of Present Illness) Category Sub-Category Detail Notes Category Not es Symptom(s) patient is a 74 yo male here for 3 month follow up. has lost 40 pounds. has given up carbs and sweets./ has had no chest pains. had 2 stents 14 years ago. Examination Category Sub-Category Detail Notes Category Not es General Examination GENERAL APPEARANCE: alert, w ell hydrated, in no distress HEART: no murmurs, rubs, ga llops , regular rate and rhythm LUNGS: no wheezes, rales, r honchi , good air movement , clear to auscultation bilaterally SKIN: good turgor
== END 2024-06-09 11:35 | disposition home or self-care (01) ==
LOC: HO.LNP 11:34
PROVIDERS: Visit Provider Internal Medicine
DX: E11.9 Type 2 diabetes mellitus without complications (principal); E78.00 Pure hypercholesterolemia, unspecified; Z12.5 Encounter for screening for malignant neoplasm of prostate
CPT/HCPCS: 80053; 80061; 81001; 82043; 82570; 83036; 84153; 85025

== ENCOUNTER 2024-12-08 10:53 | Outpatient (REF) | payer MEDICARE, OTHER, SELFPAY ==
--- OUTSIDE RECORDS SUMMARY | 2024-07-06 09:14 | XMS_ITS ---
Author Organization Yuriy Bueno MD Address [address] [place] [phone] Care Team Providers Care Sephora Operations Consultant Name Role Phone Yuriy Bueno Primary Care Provider Encounters Encounter Location Date Provider Diagnosis Yuriy Bueno MD [address] [place] [address] [place] [phone] 07/06/2024 Yuriy Bueno Plan Of Treatment Next Appt Details Provider Name:Yuriy brush, 12/22/2024 09:00:00 AM, [address] [place] [address], [address] [place] [address], [phone], Provider Name:Yuriy brush, 06/19/2025 07:30:00 AM, [address] [place] [address], [address], [phone], Provider Name:Yuriy brush, 06/26/2025 08:30:00 AM, [address] [place] [address], [address], [phone], Progress Notes * Iglesia HAIRDOB:[birth year] (74 yo M)Acc No.[id number]:07/06/2024 Patient: Iglesia TOMLINSON :1950 A ge:74 Y S ex:Male Address:[facility] [address], [address] [place] [address] [address], [place] [address] * true * Date: Generated for Pepe hernandez/Eve/Karylsmitting on: 0 12/08/2024 11:33 AM EDT
--- OUTSIDE RECORDS SUMMARY | 2024-07-11 04:45 | XMS_ITS ---
Author Organization Yuriy Bueno MD Address [address] [place] [phone] Care Team Providers Care Gear Cutting Machine Set Up Operator Name Role Phone Yuriy Bueno Primary Care Provider Allergies No Known Allergies Reason For Referral Reason lumbar disc disease Diagnosis 1 Lumbar disc disease (M51.9) Referral Organization Yuriy Bueno MD Referring Provider First Name Yuriy Referring Provider Last Name Myles Referring Provider Speciality Internal M edicine Referred Provider [facility] Referred Provider Specialty Physical [facility] Notes Annetta Lao 0 07/20/2024 10:27:31 AM >info faxed, Annetta Lao 07/24/2024 11:59:57 AM >was told patient is aware of bradley t Referral Priority Routine Referral Appointment Date 08/29/2024 REASON FOR VISIT 1 WEEK F/U MRI 07-18-24 at [facility], Video [phone], c/o right thigh pain Medications Medication SIG (Take, Route, Frequency, Duration) Notes Start Date End Date Status Propranolol HCl ER 80 MG TAKE 1 CAPSULE BY MOUTH EVERY DAY FOR 90 DAYS for 90 Active Atorvastatin Calcium 80 MG 1 tablet Orally Once a day Active Aspir-81 81 MG 1 tablet Orally Once a day for 30 day(s) Active Losartan Potassium 50 MG 1 tablet Orally Once a day Active Ibuprofen 200 MG 1 tablet with food or milk as needed Orally Three times a day Active traMADol HCl 50 MG 1 tablet as needed Orally 3 times a day for 10 days 07/11/2024 Active Irbesartan 150 MG 1 tablet Orally Once a day Not-Taking Flonase 50 MCG/ACT 1 spray in each nostril Nasally Once a day for 30 day(s) 07/23/2014 Not-Taking Zithromax Z-Frank 250 MG 2 tablet on the first day, then 1 tablet daily for 4 days Orally 2 tabs day one then 1 per day for 5 days 11/12/2022 Not-Taking Paxlovid (300/100) 20 x 150 MG & 10 x 100MG 2 tabs nirm and 1 of nadeen Orally Twice a day for 5 days 11/17/2022 Not-Taking dexAMETHasone 4 MG 1 tablet Orally three times a day for 7 days 08/31/2023 Not-Taking HYDROcodone-Acetaminoph en 5-325 MG 1 to 2 tabs Orally every 6 hrs for 10 days Partial Fill upon Patient Request 06/29/2024 Active Hydrocod Raman-Chlorphe Raman ER 10-8 MG/5ML 5 ml as needed Orally every 12 hrs for 10 days 01/04/2024 Not-Taking dexAMETHasone 4 MG 1 tablet Orally 3 times for 10 days 06/26/2024 Active Cyclobenzaprine HCl 5 MG 1 tablet at bedtime as needed Orally twice a day for 10 days 06/26/2024 Not-Taking Vital Signs Height 66.5 in 07/11/2024 Weight 164 lbs 07/11/2024 BMI 26.07 kg/m2 07/11/2024 weight is 164 BP not taken n o temp Encounters Encounter Location Date Provider Diagnosis Yuriy Bueno MD [address] [place], [place] [phone] 07/11/2024 Yuriy Bueno Sciatic leg pain M54.30 and Lumbar disc disease M51.9 Assessments Encounter Date Diagnosis (ICD Code) Assessment Notes Treatment Notes Treatment Clinical Notes Section Notes 07/11/2024 Sciatic leg pain (ICD-10 - M54.30) am concerned that it could be an osteomylitis/ is getting scan next week, scheduled at [facility] 07/1807/11/2024 Lumbar disc disease (ICD-10 - M51.9) referral to [facility], patient verbalized understanding of medication and directions for use Plan Of Treatment Medication Medication Name Sig Start Date Stop Date Notes traMADol HCl 50 MG 1 tablet as needed O rally 3 times a day for 10 days 07/11/2024 Treatment Notes Assessment Notes Sciatic leg pain am concerned that it could be an osteomylitis/ is getting scan next week, scheduled at [facility] 07/18 Lumbar disc disease referral to [facility], [facility] parisi verbalized understanding of medication and directions for use Referrals Referral Date Details 07/11/2024 07/11/2024, lumbar d isc disease, [facility] Next Appt Details Follow Up: next wednesday, Reas on: Provider Name:Yuriy brush, 12/22/2024 09:00:00 AM, [address] [place] [address], [address], [phone], Provider Name:Yuriy brush, 06/19/2025 07:30:00 AM, [address] [place] [address], [place] [address], [place], [place], [phone], Provider Name:Yuriy brush, 06/26/2025 08:30:00 AM, [address] [place] [address], Suite [facility], [place], [place], [phone], Progress Notes * Iglesia HAIRDOB:[birth year] (74 yo M)Acc No.[id number]:07/11/2024 Patient: Nydia Iglesia HAYNES Provider: Bruce Bueno MD :1950 A ge:74 Y S ex:Male Date:07/11/2024 Address:[facility] [address], [address] [facility] [address], [phone] Subjective: * Chief Complaints: * 1 WEEK F/U MRI 07-18-24 at [facility] [phone]/o right thigh pain * HPI: S ymptom(s): Telehealth L ocation of provider rendering services: 1 [address] [facility], [address], L ocation of patient: a t address listed in demographics for today's visit, Kaity flower identification confirmed using: FAHEEM Mendez ame, T elehealth method: V ideo conference where patient is visible to the provider of care, C onsent: P ching verbally consented to treatment, Patient verbally consented to billing insurance company, Patient informed of any privacy concerns related to method of visit, T otal time spend talking with patient (minutes) 1 8. patient is a 74 yo male video telehealth visit here for one week follow up visit. pain in thigh only. just upper leg. like a vice. 2 days ago woke with no pain but in afternoon was worse. * ROS: G eneral/Constitutional: Denies C hills. D enies F atigue. D enies F ever. D enies H eadache. E NT: Denies S ore throat. R espiratory: Denies C ough. D enies S hortness of breath at rest. D enies S hortness of breath with exertion. G astrointestinal: Denies D iarrhea. D enies N ausea. * Medical History: * Surgical History: * Hospitalization/Major Diagno stic Procedure: * Medications: T akingIbuprofen 200 MG Tablet 1 tablet with food or milk as needed Orally Three times a day Aspir-81 81 MG Tablet Delayed Release 1 tablet Orally Once a day Losartan Potassium 50 MG Tablet 1 tablet Orally Once a day Propranolol HCl ER 80 MG Capsule Extended Release 24 Hour TAKE 1 CAPSULE BY MOUTH EVERY DAY FOR 90 DAYS Atorvastatin Calcium 80 MG Tablet 1 tablet Orally Once a day dexAMETHasone 4 MG Tablet 1 tablet Orally 3 times HYDROcodone-Acetaminophen 5-325 MG Tablet 1 to 2 tabs Orally every 6 hrs , Notes to Pharmacist: Partial Fill upon Patient RequestTaking Ibuprofen 200 MG Tablet 1 tablet with food or milk as needed Orally Three times a day Taking Aspir-81 81 MG Tablet Delayed Release 1 tablet Orally Once a day Taking Losartan Potassium 50 MG Tablet 1 tablet Orally Once a day Taking Propranolol HCl ER 80 MG Capsule Extended Release 24 Hour TAKE 1 CAPSULE BY MOUTH EVERY DAY FOR 90 DAYS Taking Atorvastatin Calcium 80 MG Tablet 1 tablet Orally Once a day Taking dexAMETHasone 4 MG Tablet 1 tablet Orally 3 times Taking HYDROcodone-Acetaminophen 5-325 MG Tablet 1 to 2 tabs Orally every 6 hrs , Notes to Pharmacist: Partial Fill upon Patient RequestNot-Taking/PRNCyclobenzaprine HCl 5 MG Tablet 1 tablet at bedtime as needed Orally twice a day Hydrocod Raman-Chlorphe Raman ER 10-8 MG/5ML Suspension Extended Release 5 ml as needed Orally every 12 hrs dexAMETHasone 4 MG Tablet 1 tablet Orally three times a day Zithromax Z-Frank 250 MG Tablet 2 tablet on the first day, then 1 tablet daily for 4 days Orally 2 tabs day one then 1 per day Paxlovid (300/100) 20 x 150 MG & 10 x 100MG Tablet Therapy Pack 2 tabs nirm and 1 of nadeen Orally Twice a day Irbesartan 150 MG Tablet 1 tablet Orally Once a day Flonase 50 MCG/ACT Suspension 1 spray in each nostril Nasally Once a day Medication List reviewed and reconciled with the patientNot-Taking/PRN Cyclobenzaprine HCl 5 MG Tablet 1 tablet at bedtime as needed Orally twice a day Not-Taking/PRN Hydrocod Raman-Chlorphe Raman ER 10-8 MG/5ML Suspension Extended Release 5 ml as needed Orally every 12 hrs Not-Taking/PRN dexAMETHasone 4 MG Tablet 1 tablet Orally three times a day Not-Taking/PRN Zithromax Z-Frank 250 MG Tablet 2 tablet on the first day, then 1 tablet daily for 4 days Orally 2 tabs day one then 1 per day Not-Taking/PRN Paxlovid (300/100) 20 x 150 MG & 10 x 100MG Tablet Therapy Pack 2 tabs nirm and 1 of nadeen Orally Twice a day Not- Taking/PRN Irbesartan 150 MG Tablet 1 tablet Orally Once a day Not-Taking/PRN Flonase 50 MCG/ACT Suspension 1 spray in each nostril Nasally Once a day Medication List reviewed and reconciled with the patient * Allergies: N .K.D.A.yes[Allergies Verified] Objective: * Vitals: H t: 66.5, Wt: 164, BMI:26.07, Wt-k.39. weight is 164 B P not taken no temp. * Examination: G eneral Examination: GENERAL APPEARANCE: a lert, well hydrated, in no distress.? HEAD: n ormocephalic. Assessment: * Assessment: 1. S ciatic leg pain - M54.30 (Primary) 2 . L umbar disc disease - M51.9? Plan: * Treatment: 2. L umbar disc disease Start traMADol HCl Tablet, 50 MG, 1 tablet as needed, Orally, 3 times a day, 10 days, 30 Tablet, Refills 1. Notes: referral to [facility], patient verbalized understanding of medication and directions for use Referral To:HIGINIO HUBBARD Physical Therapist Reason:lumbar disc disease * Procedure Codes: * Follow Up: n ext wednesday * * Sign off status: Completed true * Provider: Bruce Bueno MD Date: 0 07/11/2024 Generated for Pepe hernandez/Eve/eTransmitting on: 0 12/08/2024 11:33 AM EDT History and Physical Notes * HPI (History of Present Illness) Category Sub-Category Detail Notes Category Not es Symptom(s) Telehealth Location of [facility] rendering services:: [address], [address] patient is a 74 yo male video telehealth visit here for one week follow up visit. pain in thigh only. just upper leg. like a vice. 2 days ago woke with no pain but in afternoon was worse Location of patient:: at address listed in demographics for today's visit Patient identification confirmed using:: Name, Telehealth method:: Video co nference where patient is visible to the provider of care Consent:: Patient verbally c onsented to treatment, Patient verbally consented to billing insurance company, Patient informed of any privacy concerns related to method of visit Total time spend talking with patient (m inutes): 18 Examination Category Sub-Category Detail Notes Category Not es General Examination GENERAL APPEARANCE: alert, w ell hydrated, in no distress HEAD: normocephalic Consultation Request Notes Referral Date Referring Provider Referred Provider Not es 07/11/2024 Yuriy Bueno, HIGINIO franco mbar disc disease
--- OUTSIDE RECORDS SUMMARY | 2024-07-28 06:45 | XMS_ITS ---
Author Organization Yuriy Bueno MD Address [address] [place] [phone] Care Team Providers Care Orderlies Teacher Name Role Phone Yuriy Bueno Primary Care Provider [phone] Allergies No Known Allergies REASON FOR VISIT 1 week MRI 07-18-24 at [facility], Medications Medication SIG (Take, Route, Frequency, Duration) Notes Start Date End Date Status Hydrocod Raman-Chlorphe Raman ER 10-8 MG/5ML 5 ml as needed Orally every 12 hrs for 10 days 01/04/2024 Not-Taking Irbesartan 150 MG 1 tablet Orally Once a day Not-Taking Flonase 50 MCG/ACT 1 spray in each nostril Nasally Once a day for 30 day(s) 07/23/2014 Not-Taking Cyclobenzaprine HCl 5 MG 1 tablet at bed time as needed Orally twice a day for 10 days 06/26/2024 Not-Taking Ibuprofen 200 MG 1 tablet with food o r milk as needed Orally Three times a day Active traMADol HCl 50 MG 1 tablet as needed Orally 3 times a day 07/11/2024 Active Propranolol HCl ER 80 MG TAKE 1 CAPSULE BY MOUTH EVERY DAY FOR 90 DAYS for 90 Active Atorvastatin Calcium 80 MG 1 tablet Oral ly Once a day Active Aspir-81 81 MG 1 tablet Orally Once a day for 30 day(s) Active Losartan Potassium 50 MG 1 tablet Orally Once a day Active Vital Signs Blood pressure systolic 101 mm Hg 07/29/19 25 Blood pressure diastolic 60 mm Hg 025 Height 66.5 in 07/28/2024 Weight 160 lbs 07/28/2024 weight is 160 at home BP 101 /60 Encounters Encounter Location Date Provider Diagnosis Yuriy Bueno MD [address] [place] [address] [phone] 07/28/2024 Yuriy Bueno Sciatic leg pain M54.30 and Lumbar disc disease M51.9 Assessments Encounter Date Diagnosis (ICD Code) Assessment Notes Treatment Notes Treatment Clinical Notes Section Notes 07/28/2024 Sciatic leg pain (ICD-10 - M54.30) is doing much better on the tramadol. 07/28/2024 Lumbar disc disease (ICD-10 - M51.9) Plan Of Treatment Medication Medication Name Sig Start Date Stop Date Notes Ibuprofen 200 MG 1 tablet with food o r milk as needed Orally Three times a day traMADol HCl 50 MG 1 tablet as needed Orally 3 times a day 07/11/2024 Treatment Notes Assessment Notes Sciatic leg pain is doing much better on the tramadol. Next Appt Details Follow Up: 4 Weeks, Reason: Provider Name:Yuriy bruhs, 12/22/2024 09:00:00 AM, [address] [place] [address], [phone], Provider Name:Yuriy brush, 06/19/2025 07:30:00 AM, [address] [place] [address], [id number], Provider Name:Yuriy brush, 06/26/2025 08:30:00 AM, [address] [place] [address], [phone], Progress Notes * Iglesia HAIRB:[birth year] (74 yo M)Acc No.[id number]:07/28/2024 Patient: Iglesia TOMLINSON Provider: Bruce Bueno MD :1950 A ge:74 Y S ex:Male Date:07/28/2024 Address: [address], [address] , [place], [place] Subjective: * Chief Complaints: * 1 week MRI 07-18-24 at [phone] * HPI: S ymptom(s): Telehealth L ocation of provider rendering services: [address], [address], L ocation of patient: a t address listed in demographics for today's visit, P atient identification confirmed using: FAHEEM Mendez ame, T elehealth method: T elephone only. Patient not visible to care provider., C onsent: P atient verbally consented to treatment, Patient verbally consented to billing insurance company, Patient informed of any privacy concerns related to method of visit, T otal time spend talking with patient (minutes) 1 7. patient is a 74 yo male audio telehealthvisit here for one week follow up visit/ has decreased tramadol to 2 times per day. down to one per day. is walking and going to the office. much improved. [facility] * ROS: G eneral/Constitutional: Denies C hills. D enies F atigue. D enies F ever. E NT: Denies S ore throat. R [...] Tablet 1 tablet Orally Once a day traMADol HCl 50 MG Tablet 1 tablet as needed Orally 3 times a day Taking Ibuprofen 200 MG Tablet 1 tablet with [...] 1 tablet Orally Once a day Taking traMADol HCl 50 MG Tablet 1 tablet as needed Orally 3 times a day Not-Taking/PRNCyclobenzaprine HCl 5 MG Tablet 1 tablet at bedtime as needed Orally twice a day Hydrocod Raman-Chlorphe Raman ER 10-8 MG/5ML Suspension Extended Release 5 ml as needed Orally every 12 hrs Irbesartan 150 MG Tablet 1 tablet Orally Once a day Flonase 50 MCG/ACT Suspension 1 spray in each nostril Nasally Once a day Not-Taking/PRN Cyclobenzaprine HCl 5 MG Tablet 1 tablet at bedtime as needed Orally twice a day Not-Taking/PRN Hydrocod Raman-Chlorphe Raman ER 10-8 MG/5ML Suspension Extended Release 5 ml as needed Orally every 12 hrs Not-Taking/PRN Irbesartan 150 MG Tablet 1 tablet Orally Once a day Not-Taking/PRN Flonase 50 MCG/ACT Suspension 1 spray in each nostril Nasally Once a day DiscontinueddexAMETHasone 4 MG Tablet 1 tablet Orally 3 times HYDROcodone-Acetaminophen 5-325 MG Tablet 1 to 2 tabs Orally every 6 hrs , Notes to Pharmacist: Partial Fill upon Patient RequestMedication List reviewed and reconciled with the patientDiscontinued dexAMETHasone 4 MG Tablet 1 tablet Orally 3 times Discontinued HYDROcodone-Acetaminophen 5-325 MG Tablet 1 to 2 tabs Orally every 6 hrs , Notes to Pharmacist: Partial Fill upon Patient RequestMedication List reviewed and reconciled with the patient * Allergies: N .K.D.A.yes[Allergies Verified] Objective: * Vitals: H t: 66.5, Wt: 160, BP:101/60, Wt-k.58. weight is 160 at home BP 101/60. Assessment: * Assessment: 1. S ciatic leg pain - M54.30 (Primary) 2 . L umbar disc disease - M51.9? Plan: * Treatment: * Procedure Codes: * Follow Up: 4 Weeks * * Sign off status: Completed true * Provider: Bruce Bueno MD Date: 0 07/28/2024 Generated for Pepe hernandez/Eve/eTransmitting on: 0 12/08/2024 11:33 AM EDT History and Physical Notes * HPI (History of Present Illness) Category Sub-Category Detail Notes Category Not es Symptom(s) Telehealth Location of [facility] rendering services:: [address], [address] patient is a 74 yo male destinee o telehealthvisit here for one week follow up visit/ has decreased tramadol to 2 times per day. down to one per day. is walking and going to the office. much improved. [facility] Location of patient:: at address listed in demographics for today's visit Patient identification confirmed using:: Name, Telehealth method:: Telephone only. Ashly ent not visible to care provider. Consent:: Patient verbally c onsented to treatment, Patient verbally consented to billing insurance company, Patient informed of any privacy concerns related to method of visit Total time spend talking with patient (m inutes): 17
--- OUTSIDE RECORDS SUMMARY | 2024-08-28 12:15 | XMS_ITS ---
Author Organization Yuriy Bueno MD Address [address] [place] [phone] Care Team Providers Care Insurance Manager Name Role Phone Yuriy Bueno Primary Care Provider REASON FOR VISIT 4 WK F/U Encounters Encounter Location Date Provider Diagnosis Yuriy Bueno MD [address] [facility] [address] [place] [phone] 08/28/2024 Yuriy Bueno Plan Of Treatment Next Appt Details Provider Name:Yuriy Adame iejosep, 12/22/2024 09:00:00 AM, [address] [place] [address], [address] [place] [address], [phone], Provider Name:Yuriy Adame iejosep, 06/19/2025 07:30:00 AM, [address] [place] [address], [address], [phone], Provider Name:Yuriy brush, 06/26/2025 08:30:00 AM, [address] [place] [address], [address], [phone], Progress Notes * Iglesia HAIRDOB:[birth year] (74 yo M)Acc No.[id number]:08/28/2024 Patient: Iglesia TOMLINSON Provider: Bruce Bueno MD :1950 A ge:74 Y S ex:Male Date:08/28/2024 Address:[place] [address], [address] [place] [address], [facility] Subjective: * Chief Complaints: * 1 . 4 WK F/U. * Medical History: Objective: * Vitals: Assessment: Plan: * Treatment: * * The named appointment provid er may or may not be the originator of this progress note, and it is not deemed complete until electronically signed by the appointment provider. Sign off status: Pending * Provider: Bruce Bueno MD Date: 0 08/28/2024 Generated for Pepe hernandez/Eve/Madiitting on: 0 12/08/2024 11:33 AM EDT
--- OUTSIDE RECORDS SUMMARY | 2024-12-08 03:15 | XMS_ITS ---
Author Organization Yuriy Bueno MD Address [address] [place] [phone] Care Team Providers Care Material Planning Analyst Name Role Phone Yuriy Bueno Primary Care Provider [phone] REASON FOR VISIT FASTING LIPDS Encounters Encounter Location Date Provider Diagnosis Yuriy Bueno MD [address] [place] [phone] 12/08/2024 Yuriy Bueno Pure hypercholestero lemia E78.00 and Type 2 diabetes mellitus treated without insulin E11.9 Assessments Encounter Date Diagnosis (ICD Code) Assessment Notes Treatment Notes Treatment Clinical Notes Section Notes 12/08/2024 Pure hypercholesterolemia (ICD-10 - E78.00) 12/08/2024 Type 2 diabetes pranav itus treated without insulin (ICD-10 - E11.9) Plan Of Treatment Pending Test Test Name Order Date Liver Panel 12/08/2024 Glucose Fasting 12/08/2024 Lipid Panel with Reflex 12/08/2024 Hemoglobin A1c 12/08/2024 Next Appt Details Provider Name:Yuriy Adame ier, 12/22/2024 09:00:00 AM, [address], [address] [place] [address], [phone], Provider Name:Yuriy Adame ier, 06/19/2025 07:30:00 AM, [address], [address], [place], [phone], Provider Name:Yuriy Adame ier, 06/26/2025 08:30:00 AM, [address], [address], [place], [phone], Progress Notes * IVAN Iglesia JDOB:[birth year] (74 yo M)Acc No.[id number]:12/08/2024 Progress Note Patient: Nydia HAYNES Cucosemaj Christensen Provider: Bruce Bueno MD :1950 A ge:74 Y S ex:Male Date:12/08/2024 Address:[place] [address], [address] [place] [address] , [place], [place] Subjective: * Chief Complaints: * 1 . FASTING LIPDS. * Medical History: Objective: * Vitals: Assessment: * Assessment: 1. P ure hypercholesterolemia - E78.00 (Primary) 2 . T ype 2 diabetes mellitus treated without insulin - E11.9 Plan: * Treatment: 2. T ype 2 diabetes mellitus treated without insulin L AB: Liver Panel L AB: Glucose Fasting L AB: Lipid Panel with Reflex L AB: Hemoglobin A1c * Procedure Codes: 3 6415 VENIPUNCT, ROUTINE*, 51190 VENIPUNCT, ROUTINE* * * The named appointment provid er may or may not be the originator of this progress note, and it is not deemed complete until electronically signed by the appointment provider. Sign off status: Pending * Provider: Bruce Bueno MD Date: 0 12/08/2024 Generated for Pepe hernandez/Eve/eTdosmitting on: 12/08/2024 11:33 AM EDT
--- OUTSIDE RECORDS SUMMARY | 2024-12-08 11:33 | XMS_ITS | Clinical Summary ---
Author Organization [facility] Address [address] [place] [address] Phone Care Team Providers Care Broadcast Program Director Name Role Phone Unavailable Primary Care Provider Unavailabl e Social History Tobacco Use Types Packs/Day Years Used Date Smoking Tobacco: Never Assessed Sex and Gender Information Value Date Recorded Sex Assigned at Not on file Legal Sex Male 5:33 AM EST Gender Identity Not on file Sexual Orientation Not on file Plan of Treatment Health Maintenance Due Date Last Done Comments Zoster Vaccines (2 of 3) 04/28/2016 03/03/2016 COVID-19 Vaccine ( season) 2023 01/27/2022, 07/30/2021, 02/19/2021, Additional history exists Depression Screening 04/12/2024 Abdominal Aortic Aneurysm (AAA) Screen 07/17/2024 Cholesterol Screening (Lipid Panel) 07/17/2024 Colorectal Cancer Screening: Colonoscopy 07/17/2024 Falls Risk Assessment 07/17/2024 Hepatitis C Screening 07/17/2024 Medicare Annual Wellness Visit 07/17/2024 Social Influencers of Health Screening 07/17/2024 Hypertension/CHF/CAD Annual BMP Blood Test 07/18/2024 Influenza Vaccine (#1) 2024 4, 12/21/2019, 02/14/2019, Additional history exists RSV Immunization Adult Patients (1 - 1-dose 75+ series) 2026 DTaP,Tdap,and Td Vaccines (2 - Td or Tdap) 03/13/2026 03/13/2016 Pneumococcal Vaccine: 50+ Years Completed 08/06/2020, 04/29/2017 HIB Vaccines Aged Out No longer eligi ble based on patient's age to complete this topic HPV Vaccines Aged Out No longer eligi ble based on patient's age to complete this topic Hepatitis A Vaccines Aged Out No long er eligible based on patient's age to complete this topic Hepatitis B Vaccines Aged Out No long er eligible based on patient's age to complete this topic IPV Vaccines Aged Out No longer eligi ble based on patient's age to complete this topic MMR Vaccines Aged Out No longer eligi ble based on patient's age to complete this topic Meningococcal ACWY Vaccine Aged Out N o longer eligible based on patient's age to complete this topic Meningococcal B Vaccine Aged Out No l onger eligible based on patient's age to complete this topic RSV Immunization Patients Under 20 months Aged Out No longer eligible based on patient's age to complete this topic Varicella Vaccines Aged Out No longer eligible based on patient's age to complete this topic Insurance MEDICARE
--- OUTSIDE RECORDS SUMMARY | 2024-12-08 11:33 | XMS_ITS | Clinical Summary ---
Author Organization [facility] Address [address] [place] [address] Care Team Providers Care Machine Steak Tenderizer Name Role Phone Unavailable Primary Care Provider [...] 1 - PCV) 01/15/2016 Influenza Vaccine (#1) 2024 RSV Adult > 60+ Yrs or Pregn ant (1 - 1-dose 75+ series) 2026 Hepatitis B Vaccines Aged Out No long er eligible based on patient's age to complete this topic RSV Ped < 20 months Aged Out No longe r eligible based on patient's age to complete this topic
--- OUTSIDE RECORDS SUMMARY | 2024-12-08 11:34 | XMS_ITS ---
Author Name [facility] Organization Unknown History of Medication Use Medication Directions Dispensed Refills Start Date End Date Stat us losartan (COZAAR) 50 MG tablet Take 50 mg by mouth daily. 11/05/2022 active aspirin 81 MG chewable tablet Chew 81 mg daily. ac tive Problems Problem Status Onset Date Problem Type Date of Resoluti on Source Viral URI with cough active EncounterDiagnosisAct HHCCT Encounter for screening laboratory testing for COVID-19 virus active EncounterDiagnosisAct HHCCT Encounters Encounter Type Encounter Reason Primary Diagnosis Location Date Ambulatory Contact with and (suspected) exposure to covid-19 Contact with and (suspected) exposure to covid-19 [facility] 11/18/2022 Care Team Organization Name Specialty Phone Email Start Date End Da te [facility] 05/02/2023 [facility] 11/18/2022 11/18/2022
--- OUTSIDE RECORDS SUMMARY | 2024-12-08 11:34 | XMS_ITS | Patient Health Record ---
Author Organization [facility] Address [address] [place] [address] Care Team Providers Care Cold Water Machine Operator Name Role Phone Yuriy Bueno MD Primary Care Provider David Lujan Jr Unavailable Reason For Referral No Information Medications Medication SIG (Take, Route, Frequency, Duration) [...] tablet Oral ly Once a day Active Immunizations Vaccine Route Administration Date Status Comme nts Influenza Unknown 12/12/2019 Administered Problems Problem Type SNOMED Code ICD Code Onset Dates Problem Status W/U Status Risk Notes Problem 515049085 Colon cancer screening (Z12.11) Active confirmed Problem 457177342 Personal history of colonic polyps (Z86.010) Active confirmed Problem 50203750 Encounter for other preprocedural examination (Z01.818) Active confirmed Problem [id number] senior living (current) use of aspirin (Z79.82) Active confirmed Plan Of Treatment Future Test Test Name Order Date COLONOSCOPY 06/26/2015 COLONOSCOPY 01/09/2021 Insurance Providers Payer Name Payer Address Payer Phone Subscriber Number Group Number Insured Name Patient Relationship to Insured Coverage Start Date Coverage End Date MEDICARE OF [place] [address] [place] [address] [id number] CAREY LOVE Self - patient is the insured [email or web address] [address] [place] [phone] [id number] CAREY LOVE Self - patient is the insured Medical (General) History Medical History History ICD Code Colonoscopy 08/28/15, 5 mm tubular adenom a, five-year followup Coronary artery disease with history of [place] 07/27/09 covid positive 12/22 Elevated blood sugar Hypertension Elevated cholesterol Surgical History Surgery Date(Month/Year) stent placement x2 at the time of cardia c catheterization defib implant 10/01/2015
--- OUTSIDE RECORDS SUMMARY | 2024-12-08 11:34 | XMS_ITS | Clinical Summary ---
Author Organization [facility] Address [address] [place] [address] Care Team Providers Care Construction Safety Manager Name Role Phone Pcp, No Primary Care Provider Unavailabl e Allergies No known active allergies Medications atorvastatin (LIPITOR) 80 MG tablet Take 80 mg by mouth daily. 09/30/2022 Active losartan (COZAAR) 50 MG tablet Take 50 mg by mouth daily. 11/05/2022 Active propranolol (INDERAL LA) 80 MG 24 hr capsule Take by mouth daily. 10/22/2022 Active aspirin 81 MG chewable tablet Chew 81 mg daily. Active Social History Tobacco Use Types Packs/Day Years Used Date Smoking Tobacco: Never Assessed Comments Unknown Sex and Gender Information Value Date Recorded Sex Assigned at Not on file Legal Sex Female 10:10 AM EDT Gender Identity Not on file Sexual Orientation Not on file Last Filed Vital Signs Vital Sign Reading Time Taken Comments Blood Pressure 128/79 11/18/2022 10:46 AM EDT Pulse 51 11/18/2022 10:46 AM EDT Temperature 36.8 C (98.3 F) 11/18/2022 10:46 AM EDT Respiratory Rate - - Oxygen Saturation 96% 11/18/2022 10:46 AM EDT Inhaled Oxygen Concentration - - Weight - - Height - - Body Mass Index - - Plan of Treatment Health Maintenance Due Date Last Done Comments Advance Care Planning 1950 Hepatitis C Virus Screening 1950 DTaP/Tdap/Td Vaccines (1 - Tdap) 1970 Mammogram 1991 Colonoscopy 01/15/1996 Pneumococcal Vaccines 50+ (1 of 1 - PCV) 2001 Zoster (Shingles) Vaccine (1 of 2) 2001 DXA Bone Density (Females,Ag es 65 and older) 01/15/2016 COVID-19 Vaccine (2023-2 5 season) 2023 Influenza Vaccine 11/10/2024 RSV Vaccine 60 years and old er and Patients (1 - 1-dose 75+ series) 2026 Hepatitis B Vaccines Aged Out No long er eligible based on patient's age to complete this topic Insurance MEDICARE PART A & B Care Teams Construction Safety Manager Relationship Specialty Start Date End Date Pcp, [address] [place] [address] PCP - General 11/18/22
--- OUTSIDE RECORDS SUMMARY | 2024-12-08 11:34 | XMS_ITS | Patient Health Record ---
Author Organization Yuriy Bueno MD Address [address] [place], [place] [id number] Care Team Providers Care Industrial Illuminating Engineer Name Role Phone Yuriy Bueno Primary Care Provider [phone] Allergies No Known Allergies Results Component Value Reference Range Notes Complete Blood Count Auto Di ff Reviewed date:06/09/2024 12:41:07 PM Interpretation: Performing Lab:[facility], [address] [place] [phone] Notes/Report: White Blood Count 5.4 4.8-10.8 X10*3/uL [...] X10*3/uL NRBC Abs Auto 0.000 0.0-0.012 X10*3/uL Comprehensive [place]. Panel Fa st Reviewed date:06/09/2024 04:41:44 PM Interpretation: Performing Lab:[facility], [address] [place] [phone] Notes/Report: Sodium 139 135-145 mmol/L Potassium 4.5 [...] 3.5-5.0 g/dL Alkaline Phosphatase 40 39-117 U/L Lipid Panel Reviewed date:06/09/2024 12:40:42 PM Interpretation: Performing Lab:[facility], [address] [place] [phone] Notes/Report: Triglycerides 59 <150 mg/dL Desirable Triglyceride: [...] (Free>4and<10) Reviewed date:06/09/2024 12:40:18 PM Interpretation: Performing Lab:[facility], [address] [place] [phone] Notes/Report: PSA,Total (Free>4and<10) 1.76 0.00-4.00 ng/mL A [...] Random Reviewed date:06/09/2024 12:40:29 PM Interpretation: Performing Lab:[facility], [address] [place] [phone] Notes/Report: Creatinine Urine 106.21 Microalbumin Urine 8.0 Microalbum/Creatinine Ratio Ur 7.5 <30 ug/mg cr Albumin/Creatinine Ratio Reference Ranges: Normal: < 30 ug/mg creatinine Microalbuminuria: 30 - 300 ug/mg creatinine Clinical Albuminuria: > 300 ug/mg creatinine Hemoglobin A1c Reviewed date:06/09/2024 12:40:36 PM Interpretation: Performing Lab:[address] [phone] Notes/Report: Hemoglobin A1c % 5.4 <6.0 % [...] average glucose, using the formula of the D4L-Zrqofpa Average Glucose study (ADAG), Diabetes Care, Vol.31,#8, Nov. 2007 UA ClnCatch+Micro w/rflx Cul t Reviewed date:06/09/2024 12:41:26 PM Interpretation: Performing Lab:[address] [phone] Notes/Report: Urine, Clean Catch Color Urine Yellow Appearance Urine Clear PH 5.5 5.0-9.0 Glucose Urine UA Negative Negative mg/dL Urine Blood Negative Negative Specific [place] - Urine 1.020 1.005-1.025 Urine Protein Negative Neg-Trace mg/dL Urine Ketones Negative Negative mg/dL Nitrite Urine Negative Negative Leukocyte Esterase Urine Negative Negative RBC Urine 0-2 0-2 /HPF WBC Urine 0-5 0-5 /HPF Squamous Epithelial Cell Urine 0-2 0-2 /HPF Bacteria Urine None Seen None Seen Hyaline Casts Urine 0-2 0-2 /LPF Glucose Fasting Reviewed date:03/03/2024 12:08:01 PM Interpretation: Performing Lab:[address] [phone] Notes/Report: Glucose Fasting 108 60-99 mg/dL A fasting glucose from 100-125 mg/dl is considered impaired (pre-diabetes). Hemoglobin A1c Reviewed date:03/03/2024 12:07:42 PM Interpretation: Performing Lab:[address] [phone] Notes/Report: Hemoglobin A1c % 5.5 <6.0 % [...] average glucose, using the formula of the Q9Z-Bmveuvb Average Glucose study (ADAG), Diabetes Care, Vol.31,#8, Nov. 2007 Occult Blood, Stool, Guaiac Reviewed date:06/23/2024 10:42:38 AM Interpretation:Negative Performing Lab: Notes/Report: Negative Occult Blood, Stool, Guaiac Neg Hold Gold (Not yet reviewed by provider) Interpretation: Performing Lab:[facility], [address] [place] [phone] Notes/Report: Hold Gold See Note Specimen held untested for 24 hours; Call to request Chemistry testing. Reason For Referral Reason lumbar disc disease [...] Referral Priority Routine Referral Appointment Date 08/29/2024 Medications Medication SIG (Take, Route, Frequency, Duration) Notes Start Date End Date Status Cyclobenzaprine HCl 5 MG 1 tablet at bed time as needed Orally twice a day for 10 days 06/26/2024 Not-Taking Hydrocod Raman-Chlorphe Raman ER 10-8 MG/5ML 5 ml as needed Orally every 12 hrs for 10 days 01/04/2024 Not-Taking Irbesartan 150 MG 1 tablet Orally Once a day Not-Taking Flonase 50 MCG/ACT 1 spray in each nostril Nasally Once a day for 30 day(s) 07/23/2014 Not-Taking Ibuprofen 200 MG 1 tablet with food o r milk as needed Orally Three times a day Active traMADol HCl 50 MG 1 tablet as needed Orally 3 times a day 07/11/2024 Active Aspir-81 81 MG 1 tablet Orally Once a day for 30 day(s) Active Losartan Potassium 50 MG 1 tablet Orally Once a day Active Propranolol HCl ER 80 MG TAKE 1 CAPSULE BY MOUTH EVERY DAY FOR 90 DAYS for 90 Active Atorvastatin Calcium 80 MG 1 tablet Oral ly Once a day Active Immunizations Vaccine Route Administration Date Status Comme nts zFluzone Quadrivalent IM Intramuscular 02/18/2015 Administ ered PPSV23 (Pnemovax) IM Intramuscular 03/25/2015 Administered Fluarix Quadrivalent IM Intramuscular 03/03/2016 Administe red Shingles IM Intramuscular 03/03/2016 Administered TDaP IM Intramuscular 03/13/2016 Administered Fluarix Quadrivalent IM Intramuscular 04/19/2017 Administe red Prevnar 13 IM Intramuscular 04/29/2017 Administered Fluarix Quadrivalent IM Intramuscular 02/14/2018 Administe red Fluarix Quadrivalent IM Intramuscular 02/14/2019 Administe red Influenza High Dose IM Intramuscular 12/21/2019 Administer ed PPSV23 (Pnemovax) IM Intramuscular 08/06/2020 Administered SARS-COV-2 Moderna Unknown 06/11/2020 Administered SARS-COV-2 Moderna Unknown 07/09/2020 Administered SARS-COV-2 Moderna Unknown 02/19/2021 Administered SARS-COV-2 Moderna Unknown 07/30/2021 Administered SARS-COV-2 Moderna Unknown 01/27/2022 Administered Influenza High Dose IM Intramuscular 03/03/2024 Administer ed Influenza High Dose IM Intramuscular 03/03/2024 Administer ed Flu Vaccine Unknown 07/09/2014 Refused Shingrix Unknown 06/06/2019 Refused Social History Tobacco Use: Social History Observation Description Date Details (start date - stop date) Never Smoker NA - NA Tobacco Use/Smoking Question Answer Notes Patient is a nonsmoker Additional Findings: Tobacco Non-User Cu rrent non-smoker, currently using no form of tobacco Alcohol Screen Question Answer Notes Did you have a drink contain ing alcohol in the past year? Yes How often did you have a dri nk containing alcohol in the past year? Monthly or less (1 point) How many drinks did you have on a typical day when you were drinking in the past year? 1 or 2 drinks (0 point) How often did you have 6 or more drinks on one occasion in the past year? Never (0 point) Points 1 Interpretation Negative Problems Problem Type SNOMED Code ICD Code Onset Dates Problem Status W/U Status Risk Notes Problem 770242940 Tubular adenoma (D36.9) Active confir med Problem Asthmatic bronchitis (945909364) Asthmatic bronchitis (J45.909) Active confirmed Problem 15095854 Coronary atherosclerosis due to lipid rich plaque (I25.83) Active confirmed Problem 599351101 Essential tremor (G25.0) Active confirmed Problem 990537691 Lumbar disc dise ase (M51.9) Active confirmed Problem 0175477 Prediabetes (R73.09) Active confirmed Problem 701977232 History of hemat uria (Z87.448) Active confirmed Problem Sciatic leg pain (M54.30) Active confirmed Problem 247366176 Pure hypercholesterolemia (E78.00) Active confirmed Problem 91648046 Type 2 diabetes mellitus treated without insulin (E11.9) Active confirmed Vital Signs Temperature 99.3 degrees Fahrenheit 01/03/2024 weig ht at home is 180 BP not taken at home temp is 99.3 Blood pressure diastolic 60 mm Hg 07/28/2024 tari ght is 160 at home BP 101/60 Height 66.5 in 07/28/2024 weight is 160 a t home BP 101/60 Blood pressure systolic 101 mm Hg 07/28/2024 weig ht is 160 at home BP 101/60 Weight 160 lbs 07/28/2024 weight is 160 a t home BP 101/60 BMI 26.07 kg/m2 07/11/2024 weight is 164 B P not taken no temp Encounters Encounter Location Date Provider Diagnosis Yuriy Bueno MD [address] [place] [address] [id number] 06/09/2024 Yuriy Bueno Type 2 diabetes pranav itus treated without insulin E11.9 and Pure hypercholesterolemia E78.00 Yuriy Bueno MD [address] [place] [address] [id number] 07/04/2024 Yuriy Bueno MD [address] [place] [address] [id number] 12/08/2024 Yuriy Bueno Pure hypercholestero lemia E78.00 and Type 2 diabetes mellitus treated without insulin E11.9 Yuriy Bueno MD [address] [place] [address] [id number] 01/03/2024 Yuriy Bueno COVID-19 U07.1 Yuriy Bueno MD [address] [place] [id number] 03/03/2024 Yuriy Bueno Prediabetes R73.09 ; Coronary atherosclerosis due to lipid rich plaque I25.83 and Encounter for immunization Z23 Yuriy Bueno MD [address] [place] [address] [id number] 06/23/2024 Yuriy Bueno Hernia of abdominal wall K43.9 ; Coronary atherosclerosis due to lipid rich plaque I25.83 ; Type 2 diabetes mellitus treated without insulin E11.9 ; Pure hypercholesterolemia E78.00 ; Colon cancer screening Z12.11 and Depression screening Z13.31 Yuriy Bueno MD [address] [place] [address] [id number] 06/26/2024 Yuriy Bueno Sciatic leg pain M54 .30 Yuriy Bueno MD [address] [place] [address] [id number] 07/11/2024 Yuriy Bueno Sciatic leg pain M54 .30 and Lumbar disc disease M51.9 Yuriy Bueno MD [address] [place] [address] [id number] 07/28/2024 Yuriy Bueno Sciatic leg pain M54 .30 and Lumbar disc disease M51.9 Yuriy Bueno MD [address] [place] [address] [id number] 01/04/2024 Yuriy Bueno COVID-19 U07.1 Yuriy Bueno MD [address] [place] [address] [id number] 06/27/2024 Yuriy Bueno MD [address] [place] [address] [id number] 06/29/2024 Yuriy Bueno Sciatic leg pain M54 .30 ; Lumbar back pain M54.50 and Lumbar disc disease M51.9 Yuriy Bueno MD [address] [place] [address] [id number] 06/30/2024 Yuriy Bueno MD [address] [place] [address] [id number] 06/30/2024 Yuriyeusebio Bueno MD [address] [place], [place] [id number] 07/06/2024 Yuriy Bueno Assessments Encounter Date Diagnosis (ICD Code) Assessment Notes Treatment Notes Treatment Clinical Notes Section Notes 06/09/2024 Type 2 diabetes mellitus treated without insulin (ICD-10 - E11.9) 06/09/2024 Pure hypercholesterolemia (ICD-10 - E78.00) 12/08/2024 Pure hypercholesterolemia (ICD-10 - E78.00) 01/03/2024 COVID-19 (ICD-10 - U07.1) doing well and wants no meds, patient verbalized understandingf medication and directions for use 03/03/2024 Prediabetes (ICD-10 - R73.09) 03/03/2024 Coronary atherosclerosis due to lipid rich plaque (ICD-10 - I25.83) will get cardiac ct. / order given to patient/ THE ORDER WAS FAXED TO [facility] AT [phone]. 06/23/2024 Hernia of abdominal wall (ICD-10 - K43.9) have explained what hernias can do. 06/23/2024 Coronary atherosclerosis due to lipid rich plaque (ICD-10 - I25.83) doing well with no recurrence 06/26/2024 Sciatic leg pain (ICD-10 - M54.30) patient verbalized underwtanding of medication and directions for use 07/11/2024 Sciatic leg pain (ICD-10 - M54.30) am concerned that it could be an osteomylitis/ is getting scan next week, scheduled at [facility] 07/1807/11/2024 Lumbar disc disease (ICD-10 - M51.9) referral to pssp, patient verbalized understanding of medication and directions for use 07/28/2024 Sciatic leg pain (ICD-10 - M54.30) is doing much better on the tramadol. 01/04/2024 COVID-19 (ICD-10 - U07.1) 06/29/2024 Sciatic leg pain (ICD-10 - M54.30) 12/08/2024 Type 2 diabetes mellitus treated without insulin (ICD-10 - E11.9) 03/03/2024 Encounter for immunization (ICD-10 - Z23) 06/23/2024 Type 2 diabetes mellitus treated without insulin (ICD-10 - E11.9) has normalized, will continue to monitor 07/28/2024 Lumbar disc disease (ICD-10 - M51.9) 06/29/2024 Lumbar back pain (ICD-10 - M54.50) 06/23/2024 Pure hypercholesterolemia (ICD-10 - E78.00) stable, will continue current regiment 06/29/2024 Lumbar disc disease (ICD-10 - M51.9) 06/23/2024 Colon cancer screeni ng (ICD-10 - Z12.11) guaiac negative 06/23/2024 Depression screening (ICD-10 - Z13.31) negative screen Plan Of Treatment Pending Test Test Name Order Date MRI LUMBAR SPINE NO CONTRAST 06/29/2024 XR CHEST 2 VIEW PA & LAT 02/25/2016 Liver Panel 12/08/2024 Glucose Fasting 12/08/2024 Lipid Panel with Reflex 12/08/2024 Hold Gold 12/08/2024 Hemoglobin A1c 12/08/2024 Next Appt Details Provider Name:Yuriy brush, 12/22/2024 09:00:00 AM, [address] [place] [address], [address], [phone], Provider Name:Yuriy brush, 06/19/2025 07:30:00 AM, [address] [place] [address], [address], [phone], Provider Name:Yuriy brush, 06/26/2025 08:30:00 AM, [address] [place] [address], [address], [phone], Insurance Providers Payer Name Payer Address Payer Phone Subscriber Number Group Number Insured Name Patient Relationship to Insured Coverage Start Date Coverage End Date MEDICARE NHIC [address] [place] [address] [id number] [employer] Self - patient is the insured [employer] [address] SAR[place]Y Thompson [phone] [id number] [employer] Self - patient is the insured Medical (General) History Medical History History ICD Code hematuria worked colonoscopy in 2003; colonoscopy done w/Dr. Stewart colonoscopy 01/22/21 richard darby re: follow up date tubular adenoma. repeat
[2024-12-08 11:36] LABS: Alanine Aminotransferase 29 U/L (0-40); Albumin Level 4.6 g/dL (3.5-5.0); Alkaline Phosphatase 46 U/L (39-117); Aspartate Amino Transferase 33 U/L (5-37); Cholesterol 143 mg/dL (<200); HDL Cholesterol 58 mg/dL (>40); Total Protein 6.9 g/dL (6.5-8.0); Triglycerides 71 mg/dL (<150)
[2024-12-08 11:40] LABS: Hemoglobin A1C 150.7135 umol/L; Total Hemoglobin (HGBA1C) 3728.0719 umol/L
[2024-12-08 16:47] LABS: Reflex LDLD? No
== END 2024-12-08 10:54 | disposition home or self-care (01) ==
LOC: HO.LNP 10:53
PROVIDERS: Visit Provider Internal Medicine
DX: E11.9 Type 2 diabetes mellitus without complications (principal); E78.00 Pure hypercholesterolemia, unspecified
CPT/HCPCS: 80061; 80076; 82947; 83036